=== PATIENT | male | born 1945 | race Caucasian/White ===

== ENCOUNTER → 2017-12-12 | Outpatient (CLI) | payer MEDICARE, OTHER ==
[~2017-12-12] MED LIST: AMLO5TAB2 PO; ASCO-90 PO; ASPI-496 PO; CHOL10003 PO; COLE625T12 PO; DEXL60CA2 PO; ENAL20TA PO; FENO160T PO; FOLI0.8T2 PO; METF500T4 PO; METO200T47 PO; NITR0.4T SL; OMEG1CAP23 PO; PRAV40TA2 PO; SERT50TA5 PO; TAMS0.4C2 PO
== END | disposition home or self-care (01) ==
LOC: CFH 15:03
PROVIDERS: ATTEND Nurse Practitioner Family
DX: R07.1 Chest pain on breathing (principal)
CPT/HCPCS: 71046